=== PATIENT | female | born 1980 | race Caucasian/White ===

== ENCOUNTER → 2019-06-12 | Outpatient (CLI) | payer OTHER ==
--- NOTE | 2019-06-13 17:21 | RAD ---
DATE: 06/12/2019 EXAM: MAMMO ANISH SCREENING BILATERAL HISTORY: Routine screening COMPARISON: Previous mammogram was performed more than 20 years ago. This study was interpreted with the benefit of Computerized Aided Detection (CAD). Breast Density: SCATTERED The breast parenchyma shows scattered fibroglandular densities. Breast parenchyma level B. FINDINGS: Implant displacement views were obtained in addition to standard mammographic images. No suspicious calcifications or definite distortion. Focal asymmetry involving the left 9:00 region is present 3.2 cm from the nipple. This may represent summation of a region of breast parenchyma. No dominant mass. Implant contours are unremarkable. IMPRESSION: Spot compression imaging recommended at the left breast 9:00 region where focal asymmetry is present. Ultrasound may be needed. BI-RADS CATEGORY: 0 INCOMPLETE: NEEDS ADDITIONAL IMAGING EVALUATION AND/OR PRIOR MAMMOGRAMS FOR COMPARISON. RECOMMENDED FOLLOW-UP: ADD ADDITIONAL IMAGING PQRS compliance statement: Patient information was entered into a reminder system with a target due date now for the next mammogram. Mammography is a sensitive method for finding small breast cancers, but it does not detect them all and is not a substitute for careful clinical examination. A negative mammogram does not negate a clinically suspicious finding and should not result in delay in biopsying a clinically suspicious abnormality. "Our facility is accredited by the [employer] Mammography Program."
== END | disposition home or self-care (01) ==
LOC: MAMMO 08:15
PROVIDERS: ATTEND Obstetrics & Gynecology Obstetrics
DX: Z12.31 Encounter for screening mammogram for malignant neoplasm of breast (principal)
CPT/HCPCS: 77063; 77067